=== PATIENT | male | born 1975 | race African-American/Black ===

== ENCOUNTER 2016-06-24 14:47 | Emergency (ER) | payer OTHER ==
[~2016-06-24] VITALS: Ht 182.9 cm; Wt 81.6 kg
[~2016-06-24 14:47] MED LIST: AMITIZA8 MC1 PO; COLACE100 M1 PO; FOLIC ACID1 M1 PO; HYDROXYUREA500 M1 PO; LOVENOX120 MG/0.1 SC; NEXIUM 40MG40 MG PO; OXYCODONE HCL10 M2 PO; OXYCONTIN80 M1 PO; ROXICODONE15 MG PO; WARFARIN SODIUM10 MG; WARFARIN SODIUM6 M1 PO
[2016-06-24 14:53] VITALS: BP 132/85
--- NOTE | 2016-06-24 15:47 | ED GENERAL ADULT ---
History of Present Illness General Chief Complaint: Dyspnea (COPD, CHF, Other) Stated Complaint: SOB Source: patient Exam Limitations: no limitations Vital Signs & Intake/Output Vital Signs & Intake/Output Vital Signs Date Time Temp Pulse Resp B/P Pulse O2 O2 Flow FiO2 Ox Delivery Rate 06/24 1453 97.2 74 20 132/85 98 Room Air Allergies Coded Allergies: diphenhydramine (From Benadryl) (Severe, HIVES 01/17/16) morphine (Severe, HIVES 01/17/16) promethazine (From Phenergan) (Severe, HIVES 01/17/16) aspirin (HYPERVENTILATE 01/17/16) Reconcile Medications Docusate Sodium (Colace) 100 MG CAPSULE 1 CAP PO DAILY STOOL SOFTENER ( Reported) Enoxaparin Sodium (Lovenox) 120 MG/0.8 ML SYRINGE 120 MG SC DAILY BLOOD THINNER (Reported) Esomeprazole (Nexium) 40 MG CAPSULE.DR 1 CAP PO DAILY ACID REFLUX (Reported) Folic Acid 1 MG TABLET 1 TAB PO DAILY SUPPLEMENT (Reported) Hydroxyurea 500 MG CAPSULE 1,500 MG PO DAILY SICKLE CELL (Reported) Lubiprostone (Amitiza) 8 MCG CAPSULE 1 CAP PO BID GI (Reported) Oxycodone HCl 10 MG TABLET 1 TAB PO Q3-4H PAIN (Reported) Oxycodone HCl (Oxycontin) 80 MG TAB.ER.12H 2 TAB PO BID PAIN (Reported) Warfarin Sodium 6 MG TABLET 12 MG PO DAILY BLOOD THINNER - SICKLE CELL ( Reported) Triage Note: 40 Y/O MALE BIBA (TO TRIAGE) C/O CHEST PAIN, ONSET THIS AM - MADE WORSE AFTER SHOVELING. HX SICKLE CELL AND DVT/PE, ON COUMADIN. PT ARRIVES TO [place] WEARING OXYGEN VIA NRB. EKG IN PROGRESS. Triage Nurses Notes Reviewed? yes Onset: Abrupt Duration: day(s): Timing: recent history HPI: 06/24/16 4 PM 40-year-old man with history of sickle cell disease presents with 2 day onset of chest wall pain and bilateral leg pain. The onset of the symptoms were abrupt, the duration was approximately last 48 hours, the severity is significant as his symptoms required to come to the emergency department for care. The triage note was appreciated. He has a past medical history of sickle cell anemia and also pulmonary embolism. He is on Coumadin. He denies fever. Past History Travel History Traveled to [place] past 21 day No Medical History Any Pertinent Medical History? see below for history Neurological: NONE EENT: NONE Cardiovascular: DVT Respiratory: pulmonary embolism Gastrointestinal: NONE Hepatic: NONE Renal: NONE Musculoskeletal: NONE Psychiatric: NONE Endocrine: NONE Blood Disorders: sickle cell disease Cancer(s): NONE [employer]/Reproductive: NONE Surgical History Surgical History: non-contributory Psychosocial History Who do you live with Spouse What is your primary language Vietnamese Tobacco Use: Never used Family History Hx Contributory? No Review of Systems Review of Systems Constitutional: Denies: fever. EENTM: Denies: visual changes. Respiratory: Denies: short of breath. Cardiovascular: Reports: chest pain. GI: Denies: abdominal pain. Genitourinary: Reports: no symptoms. Musculoskeletal: Reports: no symptoms. Skin: Reports: no symptoms. Neurological/Psychological: Reports: no symptoms. Hematologic/Endocrine: Reports: no symptoms. Physical Exam Physical Exam General Appearance: alert, awake, anxious, mild distress Head: atraumatic, normal appearance Eyes: Bilateral: normal appearance, PERRL, EOMI. Ears, Nose, Throat: normal pharynx, normal ENT inspection Neck: normal inspection, supple Respiratory: normal breath sounds, no respiratory distress, positive chest wall tenderness that reproduces his pain Cardiovascular: regular rate/rhythm Peripheral Pulses: 4+ radial (R), 4+ radial (L) Gastrointestinal: non-tender Back: decreased range of motion Extremities: normal inspection, no edema Neurologic/Psych: no motor/sensory deficits, awake, alert, oriented x 3 Skin: intact, warm/dry, cyanosis Core Measures ACS in differential dx? No CVA/TIA Diagnosis: No Severe Sepsis Present: No Septic Shock Present: No Progress Differential Diagnoses I considered the following diagnoses in my evaluation of the patient: [Sickle cell crisis, chest wall crisis, pneumonia, pneumothorax, pulmonary embolism, aortic dissection, acute coronary syndrome] Plan of Care: Orders Procedure Date/time Status Lab Add-on Test 06/24 2218 Active PROTHROMBIN TIME 06/24 1825 Active OXYGEN SETUP (GEN) 06/24 1608 Active TROPONIN LEVEL 06/24 1608 Complete RETICULOCYTE COUNT 06/24 1608 Complete D-DIMER 06/24 1608 Active COMPREHENSIVE METABOLIC PANEL 06/24 1608 Complete CBC WITHOUT DIFFERENTIAL 06/24 1608 Complete EKG 06/24 1450 Active Laboratory Tests 06/24/16 1825: PT Pending, INR Pending, D-Dimer 290 H 06/24/16 1751: Anion Gap 9, Estimated GFR > 60, BUN/Creatinine Ratio 6.0 L, Glucose 81, Calcium 9.4, Total Bilirubin 0.9, AST 18, ALT 25, Alkaline Phosphatase 74, Troponin I < 0.01, Total Protein 7.7, Albumin 4.2, Globulin 3.5, Albumin/ Globulin Ratio 1.2, CBC w Diff NO MAN DIFF REQ, RBC 3.94 L, MCV 101.3 H, MCH 32.6 H, RDW 17.1 H, MPV 8.1, Gran % 78.0 H, Lymphocytes % 13.4 L, Monocytes % 8.6, Eosinophils % 0, Basophils % 0 L, Absolute Granulocytes 8.3 H, Absolute Lymphocytes 1.4, Absolute Monocytes 0.9 H, Absolute Eosinophils 0, Absolute Basophils 0, PUBS MCHC 32.2 L, Retic Count 3.23 H Initial ED EKG: NSR Prior EKG: unchanged Departure Departure Disposition: HOME OR SELF CARE Condition: Stable Clinical Impression Primary Impression: Sickle cell crisis Referrals: ERVIN FLOR MD (PCP/Family) Departure Forms: Customer Survey General Discharge Information Comments 06/24/16 7:45 PM The patient received multiple doses of IV Dilaudid in the ED. He says that his symptoms are consistent with his typical sickle cell crisis, he has pain in the chest wall and in the legs. This pain is much improved with the fluids and the Dilaudid. Elliott is comfortable with the plan to be discharged. He will drink lots of fluids continue his pain medication and follow-up with his doctor tomorrow. His EKG was unchanged. His troponin was nondetectable. Chest x-ray was negative. D-dimer was 290. He is currently on an Lovenox and Coumadin. Critical Care Note Critical Care Note Critical Care Time: non-applicable
--- NOTE | 2016-06-24 16:38 | RADIOLOGY REPORT ---
EXAMINATION: XR PORTABLE CHEST CLINICAL INFORMATION: 40-year-old male patient with shortness of breath. COMPARISON: Last chest x-ray done 01/26/2010. CT the chest on 12/21/2013. TECHNIQUE: Portable AP portable semierect view of the chest was obtained. FINDINGS: No significant abnormality is noted involving the heart, lungs, mediastinum, bony thorax or soft tissues. IMPRESSION: Unremarkable examination.
[2016-06-24 18:12] LABS: ABSOLUTE BASOPHIL COUNT 0 /CUMM (0.0-0.2); ABSOLUTE EOSINOPHIL COUNT 0 /CUMM (0.0-0.7); ABSOLUTE GRANULOCYTE CT 8.3 /CUMM (1.4-6.5); ABSOLUTE LYMPH COUNT 1.4 /CUMM (1.2-3.4); ABSOLUTE MONOCYTE COUNT 0.9 /CUMM (0.10-0.60); BASOPHIL % 0 % (0.0-2.0); EOSINOPHIL % 0 % (0-5); HEMATOCRIT 39.9 % (42-52); MEAN CORPUSCULAR HGB 32.6 PG (27.0-31.0); MEAN CORPUSCULAR HGB CONC 32.2 G/DL (33.0-37.0); MEAN CORPUSCULAR VOLUME 101.3 FL (80.0-94.0); MEAN PLATELET VOLUME 8.1 FL (7.4-10.4); PLATELET COUNT 252 /CUMM (130-400); RBC DISTRIBUTION WIDTH 17.1 % (11.5-14.5); RED BLOOD CELL CT 3.94 /CUMM (4.70-6.10); WHITE BLOOD CELL COUNT 10.7 /CUMM (4.8-10.8)
[2016-06-24 22:33] LABS: PT 32.7 SEC (9.4-12.5)
== END 2016-06-24 20:11 ==
LOC: ERH 14:47
PROVIDERS: Emergency Medicine
DX: D57.00 Hb-SS disease with crisis, unspecified (principal); M79.604 Pain in right leg; M79.605 Pain in left leg
CPT/HCPCS: 93005; 93010; 96374; 96376